=== PATIENT | female | born 1975 | race Caucasian/White ===

== ENCOUNTER → 2024-02-21 | Outpatient (CLI) | payer BC ==
[2024-02-21 15:25] LABS: Basophils # (A) 0.04 X 10*3/uL (0.00-0.10); Basophils % (A) 0.5 %; Eosinophils # (A) 0.29 X 10*3/uL (0.04-0.35); Eosinophils % (A) 3.3 %; HCT 44.8 % (37.2-46.3); HGB 14.3 g/dL (12.0-15.0); Lymphocytes # (A) 2.54 X 10*3/uL (0.90-5.00); Lymphocytes % (A) 29.1 %; MCH 29.3 pg (27.0-32.0); MCHC 31.9 g/dL (32.0-37.0); MCV 91.8 FL (80.0-97.0); Monocytes # (A) 0.49 X 10*3/uL (0.20-1.00); Monocytes % (A) 5.6 %; NRBC Per 100 WBC 0 X 10*3/uL (0.00-0.01); Neutrophils # (A) 5.34 X 10*3/uL (1.80-7.70); Neutrophils % (A) 61.2 %; Platelet Count 312 X 10*3/uL (140-440); RBC 4.88 X 10*6/uL (4.10-5.20); RDW 11.9 % (11.5-14.5); WBC 8.73 X 10*3/uL (4.50-10.00)
[2024-02-21 16:40] LABS: % Iron Saturation 22.65 (12.00-45.00); ALT 26 U/L (8-44); AST 17 U/L (13-35); Albumin 4.4 g/dL (3.8-4.9); Albumin/Globulin Ratio 1.63 Ratio (1.60-3.17); Alkaline Phosphatase 80 U/L (41-126); BUN/Creat Ratio 11.43 Ratio (12.00-20.00); Calcium 9.5 mg/dL (8.7-10.3); Chloride 105 mmol/L (96-109); Chol/HDL Ratio 6.48 Ratio; Globulin 2.7 g/dL (1.6-3.3); Glucose 90 mg/dL (70-110); Iron 77 UG/DL (50-170); LDL Cholesterol,Calculated 197.7 mg/dL (0.0-131.0); Potassium 4.7 mmol/L (3.5-5.5); Sodium 142 mmol/L (135-145); Total Bilirubin 0.5 mg/dL (0.3-1.2); Total Iron Binding Capacity 340 UG/DL (228-460); Total Protein 7.1 g/dL (6.2-8.2)
[2024-03-05 01:44] LABS: Zinc, RBC 10.3 mg/L (9.0-14.7)
== END | disposition home or self-care (01) ==
LOC: LABWHC1 10:13
DX: R53.82 Chronic fatigue, unspecified (principal); D89.89 Other specified disorders involving the immune mechanism, not elsewhere classified; D50.9 Iron deficiency anemia, unspecified; E11.65 Type 2 diabetes mellitus with hyperglycemia; R79.82 Elevated C-reactive protein (CRP); E55.9 Vitamin D deficiency, unspecified; E56.9 Vitamin deficiency, unspecified; M81.0 Age-related osteoporosis without current pathological fracture; E03.9 Hypothyroidism, unspecified; E06.3 Autoimmune thyroiditis; K90.9 Intestinal malabsorption, unspecified; E63.0 Essential fatty acid [EFA] deficiency; E78.5 Hyperlipidemia, unspecified; D51.9 Vitamin B12 deficiency anemia, unspecified
CPT/HCPCS: 36415; 80053; 80061; 82306; 82607; 82728; 83036; 83540; 83550; 83735; 84443; 84630; 85025; 86141